=== PATIENT | female | born 1955 | race Caucasian/White ===

== ENCOUNTER 2021-02-16 02:35 | Emergency (ER) | payer OTHER, SELFPAY ==
[2021-02-16 02:36] VITALS: BP 132/70; PULSE 84; RESP 16; TEMP 36.7; O2SAT 95; BMI 29.2
--- NOTE | 2021-02-16 03:24 | HMH.EDEXTP ---
ED Disposition Clinical Impression: Rheumatoid arthritis flare Joint pain Qualifiers: Joint pain location: ankle Laterality: left Qualified Code(s): M25.572 - Pain in left ankle and joints of left foot Disposition: Home, Self-Care Condition on Discharge: Good Instructions: DI for Joint Pain Additional Instructions: use meds and call pcp for follow up Prescriptions: predniSONE [Prednisone 20mg Tab] 20 mg PO BID #10 tab Transmission Status: Pending to [facility] Referrals: Walker Capps [Primary Care Provider] - - Critical Care Critical Care Time: No Attestation: On 02/16/21, the high probability of a clinically significant, sudden or life threatening deterioration of the following system(s) required my full and direct attention, intervention and personal management. The time I documented below is in addition to time spent performing reported procedures but includes the following listed in this critical care notation. Medical Decision Making - Medical Records Medical records reviewed: Yes: I reviewed the patient's medical records. - Luis Miguel Inquiry Pt receiving controlled substance: No Vital Signs: 02/16/21 02:36 Temperature 98.1 F Temperature Source Oral Pulse Rate [Right] 84 Respiratory Rate 16 Blood Pressure [Right Arm] 132/70 Blood Pressure Mean [Right Arm] 90 02 Sat by Pulse Oximetry 95 Orders (Tests/Meds): ED MEDICATIONS Discontinued Medications Generic Name Dose Route Start Last Admin Trade Name Quinn PRN Reason Stop Dose Admin Ketorolac Tromethamine 60 mg 02/16/21 03:12 02/16/21 03:16 Ketorolac 60mg/2ml Vial IM 02/16/21 03:13 60 mg ONCE ONE Administration Methylprednisolone Sodium Succinate 125 mg 02/16/21 03:12 02/16/21 03:16 Methylprednisolone Sod Succ 125mg Vial IV 02/16/21 03:13 125 mg ONCE ONE Administration Medical Decision Narrative: has acute atraumatic jt pain consistent with hx of rheum art Extremity Problem HPI - General Chief complaint: Extremity Injury, Lower Stated complaint: Pain in left ankle Time Seen by Provider: 02/16/21 03:26 Mode of Arrival: Wheelchair Source of Information: Patient, Medical Record Limitations: No Limitations Description of Symptoms (Recalled from ER Triage Doc. by RN): pt c/o rt anle pain . pt denies no accident pt has hx of RA - History of Present Illness HPI Narrative: acute exacerbation of jt dis with lt ankle - saw rheum this am - no fever or trauma and no rash - has hx of jay hensley MD Complaint: joint paint Onset (ago): day(s) Consistency: constant Location: lower extremity Quality: aching Exacerbating factors: range of motion, weight bearing Associated symptoms: denies other symptoms - Related Data Previous Rx's Medication Instructions Recorded predniSONE [Prednisone 20mg 20 mg PO BID #10 tab 02/16/21 Tab] Allergies Allergy/AdvReac Type Severity Reaction Status Date / Time No Known Allergies Allergy Unverified 04/16/17 14:40 [facility] History - Hepatitis A Screen Drug use history?: No High risk sexual behaviors?: No History of sexually transmitted infection?: No Currently employed?: No Childcare worker?: Yes Do you have indoor plumbing?: Yes Do you have electricity?: Yes Attestation statement:: This patient has been screened for Hepatitis A risk factors. I have reviewed the patient's past medical history: Yes - Social History Smoking Status: Current every day smoker # Packs/Day (cigarettes): 1 Alcohol Intake: never Occupational Status: employed ROS Obtained: Yes All systems reviewed & no additional complaints - Constitutional Constitutional: Denies fever(s) - Eyes Eyes: Denies change in vision - ENT Ears, Nose, Mouth, and Throat: Denies sore throat - Cardiovascular Cardiovascular: Denies chest pain - Respiratory Respiratory: Denies shortness of breath - Gastrointestinal Gastrointestingal: Denies: abdominal pain - Candace
[2021-02-16 03:28] VITALS: BP 132/70; PULSE 84; RESP 16; TEMP 36.7; O2SAT 95
== END 2021-02-16 03:41 | disposition home or self-care (01) ==
PROVIDERS: Emergency Provider Emergency Medicine; PCP Pediatrics
DX: M25.572 Pain in left ankle and joints of left foot (principal); M05.672 Rheumatoid arthritis of left ankle and foot with involvement of other organs and systems; F17.210 Nicotine dependence, cigarettes, uncomplicated
CPT/HCPCS: 96372; 99281

== ENCOUNTER 2022-04-30 06:39 | Emergency (ER) | payer OTHER, MEDICARE, SELFPAY ==
[2022-04-30] VITALS (8 sets, daily range): BP systolic 118–149; BP diastolic 56–89; PULSE 58–78; RESP 16–20; TEMP 36.6–36.9; O2SAT 93–96; BMI 31.1
--- NOTE | 2022-04-30 06:50 | ECG_ITS ---
APPROVED REPORT Exam: Resting ECG HR:58 bpm ECG Measurements Heart Rate 58 AXES NV 150 P 71 QRSd 82 QRS 69 QT 422 T 66 QTc 419 Conclusion SINUS BRADYCARDIA NONSPECIFIC T-WAVE ABNORMALITY BORDERLINE ECG UNCONFIRMED REPORT Electronically signed by : Byron Barragan MD 04/30/2022 20:02:44
--- NOTE | 2022-04-30 06:52 | XR_ITS ---
PROCEDURE INFORMATION: Exam: XR Chest Exam date and time: 04/30/2022 6:53 AM Age: 66 years old Clinical indication: Shortness of breath; Patient HX: SOB, pain on inspiration; Additional info: SOA TECHNIQUE: Imaging protocol: Radiologic exam of the chest. Views: 2 views. COMPARISON: No relevant prior studies available. FINDINGS: Lungs: Linear opacity in the right mid lung with subtle area of increased density right infrahilar region. Atelectasis versus infiltrate suspected. Follow-up to ensure resolution. Lungs are otherwise well aerated. Pleural spaces: Unremarkable. No pleural effusion. No pneumothorax. Heart/Mediastinum: Unremarkable. No cardiomegaly. Bones/joints: Unremarkable. IMPRESSION: Linear opacity in the right mid lung with subtle area of increased density right infrahilar region. Atelectasis versus infiltrate suspected. Follow-up to ensure resolution. Lungs are otherwise well aerated.
[2022-04-30 07:00] LABS: Coronavirus 19, PCR Not Detected (NotDetected); Influenza A, PCR Not Detected (NotDetected); Influenza B, PCR Not Detected (NotDetected)
[2022-04-30 07:08] LABS: Basophils # 0.1 K/mm3 (0-0.2); Basophils % 1.1 % (0.1-2.0); Eosinophils # 0.1 K/mm3 (0.0-0.4); Eosinophils % 1.4 % (0.1-12.0); Hematocrit 44.9 % (37.0-47.0); Hemoglobin 14.4 g/dL (12.2-16.2); Lymphocytes # 2.8 K/mm3 (0.7-4.5); Lymphocytes % 28.6 % (10-50); Mean Corpuscular HGB Conc 32.2 g/dL (31.8-35.4); Mean Corpuscular Hemoglobin 30.1 pg (27.0-31.2); Mean Corpuscular Volume 93.6 fl (81-99); Mean Platelet Volume 8.1 fl (7.4-10.4); Monocytes # 0.7 K/mm3 (0.1-1.0); Monocytes % 7.7 % (1.7-9.3); Neutrophils # 5.9 K/mm3 (1.8-7.8); Neutrophils % 61.1 % (37.0-80.0); Platelet Count 318 K/mm3 (142-424); Red Blood Count 4.79 M/mm3 (4.20-5.40); White Blood Count 9.6 K/mm3 (4.8-10.8)
[2022-04-30 07:23] LABS: Alanine Aminotransferase 21 U/L (12-78); Albumin Level 4.1 g/dl (3.5-5.0); Albumin/Globulin Ratio 1.2 (1.1-1.8); Alkaline Phosphatase 141 U/L (38-126); Anion Gap 7.8 mEq/L (5-15); Aspartate Amino Transferase 36 U/L (14-36); Bilirubin,Total 0.4 mg/dl (0.2-1.3); Blood Urea Nitrogen 24 mg/dl (7-17); Calcium 8.6 mg/dl (8.4-10.2); Carbon Dioxide 26 mmol/L (22.0-30.0); Chloride 104 mmol/L (98-107); Creatinine Clearance Estimated 53 mL/min (50-200); Estimated Glomerular Filt Rate 41 ml/min (>60); GFR (African American) 50 ML/MIN (>60); Globulin 3.5 g/dL (1.3-3.2); Glucose 117 mg/dl (74-100); Lactic Acid 0.9 mmol/L (0.7-2.1); Potassium 3.8 mmoL/L (3.5-5.1); Sodium 134 mmol/L (136-145); Total Protein,Serum 7.6 g/dl (6.3-8.2)
[2022-04-30 07:28] LABS: C-Reactive Protein 8.1 mg/L (0-4)
[2022-04-30 07:36] LABS: Erythrocyte Sedimentation Rate 15 mm/hr (0-30)
[2022-04-30 07:39] LABS: Procalcitonin 0.083 ng/mL (0.0-2.0)
[2022-04-30 07:51] LABS: Troponin I < 0.01 ng/ml (0.00-0.034)
--- NOTE | 2022-04-30 08:01 | HMH.EDSOB ---
Discharge Plan Disposition Patient Disposition: Home, Self-Care Condition: Good Prescriptions Prescriptions: No Action prednisone 20 MG tablet 20 mg PO BID Qty: 10 0RF Referrals Follow up/Referrals: Walker Capps [Primary Care Provider] - See instructions Activity Restrictions/Add. Instructions Additional Instructions/Restrictions: Patient is informed to call her oncologist team as soon as she leaves the ED to set up an appointment. Results from CT scan discussed including concern for diffuse metastasis to the liver, rib cage, lungs and kidneys. You may require further imaging including a PET scan, please discuss with your oncology team regarding further management. Please take tyenol and ibuprofen for pain control and return to emergency department for any concerning symptoms such as difficulty breathing, worsening chest pain or any other concerns. Clinical Impressions Clinical Impression: Pleurisy, Metastatic cancer, Lung cancer, Emphysema lung Instructions Patient Instructions: DI for Emphysema, Pleurisy, DI for Lung Cancer Print Language Print Language: Greek Discharge ED Provider: Phong Reveles Resp/SOB HPI <Phong Reveles MD - Last Filed: 04/30/22 08:12> General Chief Complaint: Shortness of Breath/Dyspnea Stated Complaint: Difficulty breathing,lung pain,cough Time Seen by Provider: 04/30/22 07:30 Mode of Arrival: Ambulatory Source of Information: Patient and Medical Record Limitations: No Limitations Description of Symptoms (Recalled from ER Triage Doc. by RN): pt c/o increasing SOA and pain in rt lung with inhalation that started yesterday. pt completed treatment for lung cancer in july History of Present Illness pt with rt sided chest pain ishan with insp on rt - hx of lung cancer Complaint: shortness of breath and pain with inspiration Onset (ago): day(s) Severity: moderate Consistency/Duration: intermittent Associated symptoms: denies other symptoms Treatment prior to arrival: none Related Data Home oxygen amount: none Previous Rx's Medication Instructions Recorded prednisone 20 mg tablet 20 mg PO BID #10 tabs 02/16/21 Allergies Allergy/AdvReac Type Severity Reaction Status Date / Time No Known Allergies Allergy Unverified 04/16/17 14:40 [facility] PE Score Clinical signs/symptoms of DVT: No PE is #1 diagnosis or equally likely: Yes Heart rate is > 100: Yes Immobile at least 3 days, or surgery in past 4 wks: No Previously, obj. diagnosed PE or DVT: No Hemoptysis: No Malignancy w/Rx within 6mo, or palliative: Yes PE Score: 5 Risk of Pulmonary Embolism by score: >3 pts=Hi Risk (78%) <Mary Ibrahim MD - Last Filed: 04/30/22 10:26> Well's Criteria PE Score PE Score: 5 PFSH <Phong Reveles MD - Last Filed: 04/30/22 08:12> PFSH Disclaimer: The information contained in this section may have been updated after the patient was seen, as this information can be updated by other users. Social History Smoking Status: Current every day smoker alcohol intake: never current occupational status: employed Travel in the last 8 weeks: None <Phong Reveles MD - Last Filed: 04/30/22 08:12> ROS Obtained: Yes All systems reviewed & no additional complaints except as documented Physical Exam <Phong Reveles MD - Last Filed: 04/30/22 08:12> General General appearance: alert Head Head exam: normocephalic Eye Eye exam: Present PERRL and EOMI ENT ENT exam: Present mucous membranes moist Neck Neck exam: Present trachea midline Chest Chest inspection: Present normal inspection Respiratory Respiratory exam: Present other (rhonchi on rt ) Cardiovascular Cardiovascular exam: Present regular rate and systolic murmur Abdominal Exam Abdominal exam: Present soft Extremities Exam Extremities exam: Present full ROM; Absent calf tenderness Neurological Exam Neurological exam: Present alert, oriented X3 and CN II-XII intact Psychiatric Psychiatric exam: Noe
--- NOTE | 2022-04-30 08:10 | CT_ITS ---
PROCEDURE INFORMATION: Exam: CTA Chest With Contrast Exam date and time: 04/30/2022 9:27 AM Age: 66 years old Clinical indication: Shortness of breath; Other: Right sided shoulder blade; Patient HX: SOA & pain in right shoulder blade; Additional info: Sob- HX of cancer TECHNIQUE: Imaging protocol: Computed tomographic angiography of the chest with contrast. 3D rendering (Not supervised by radiologist): MIP and/or 3D reconstructed images were created by the technologist. Radiation optimization: All CT scans at this facility use at least one of these dose optimization techniques: automated exposure control; mA and/or kV adjustment per patient size (includes targeted exams where dose is matched to clinical indication); or iterative reconstruction. Contrast material: ISOVUE; Contrast volume: 70 ml; Contrast route: INTRAVENOUS (IV); COMPARISON: CR XR CHEST 2V 04/30/2022 6:53 AM FINDINGS: Pulmonary arteries: Normal. No pulmonary emboli. Aorta: Calcification of the aorta. Celiac trunk and mesenteric arteries: Flow within the visualized portions of the celiac artery and superior mesenteric artery. Lungs: Severe emphysema with destruction of much of the lung parenchyma, particularly within the upper lobes. Airspace consolidation within the posterior segment of the right upper lobe and or superior segment of the right lower lobe adjacent to the major fissure. Possibly atelectasis. Follow-up. Pleural spaces: Unremarkable. No pneumothorax. No pleural effusion. Heart: No pericardial effusion Mediastinal space: thoracic inlet is unremarkable. Lymph nodes: Numerous calcified lymph nodes are present within the mediastinum and hilum. These are likely the radiographic manifestation of granulomatous disease. Diaphragm: Moderate hiatal hernia. Liver: Numerous lesions within the liver consistent with metastases. Largest lateral segment left lobe of 2.6 cm. Gallbladder and bile ducts: Surgical clips are present in the region of the gallbladder fossa. Adrenal glands: Adrenal nodule on the right of approximately 17 mm. Concerning for metastases given the lesions within the liver. Bones/joints: Degenerative changes are present within the spine. Lytic lesion within the 5th rib posteriorly on the left. Soft tissues: Soft tissues of the mediastinum appear unremarkable. Other findings: No dissection. No visualized embolism as characterized to the most proximal segmental level. Consider alternative form of imaging if indicated. IMPRESSION: 1. Numerous lesions within the liver consistent with metastases. Largest lateral segment left lobe of 2.6 cm. 2. Adrenal nodule on the right of approximately 17 mm. Concerning for metastases given the lesions within the liver. 3. Moderate hiatal hernia. 4. No dissection. No visualized embolism as characterized to the most proximal segmental level. Consider alternative form of imaging if indicated. 5. Severe emphysema with destruction of much of the lung parenchyma, particularly within the upper lobes. 6. Airspace consolidation within the posterior segment of the right upper lobe and or superior segment of the right lower lobe adjacent to the major fissure. Possibly atelectasis. Follow-up. 7. Lytic lesion within the 5th rib posteriorly on the left.
--- NOTE | 2022-04-30 08:10 | PC.NURSE ---
Pt requesting something for pain at this time. Dr Reveles notified. Pt provided with warm blanket.
--- NOTE | 2022-04-30 09:23 | PC.NURSE ---
PT TRANSPORTED TO RADIOLOGY VIA WHEELCHAIR.
--- NOTE | 2022-04-30 09:32 | PC.NURSE ---
PT RETURNED FROM RADIOLOGY.
--- NOTE | 2022-04-30 09:50 | PC.NURSE ---
July assisted pt to the restroom. Pt tolerated well.
[2022-04-30 09:56] LABS: Troponin I < 0.01 ng/ml (0.00-0.034)
--- NOTE | 2022-04-30 09:59 | PC.NURSE ---
provided pt with warm blanket. hooked back up to monitor and blood pressure cycling.
--- NOTE | 2022-04-30 10:09 | PC.NURSE ---
er at bedside
== END 2022-04-30 10:50 | disposition home or self-care (01) ==
PROVIDERS: Emergency Provider Emergency Medicine; PCP Pediatrics
DX: R06.00 Dyspnea, unspecified (principal); R09.1 Pleurisy; J43.9 Emphysema, unspecified; R07.89 Other chest pain; F17.210 Nicotine dependence, cigarettes, uncomplicated; Z20.822 Contact with and (suspected) exposure to COVID-19; C34.91 Malignant neoplasm of unspecified part of right bronchus or lung; C79.51 Secondary malignant neoplasm of bone; C78.7 Secondary malignant neoplasm of liver and intrahepatic bile duct; C79.00 Secondary malignant neoplasm of unspecified kidney and renal pelvis
CPT/HCPCS: 71046; 71275; 80053; 83605; 84145; 84484; 85025; 85651; 86140; 87040; 93005; 96361; 96374; 96375; 99285; C9803; Q9967; U0003; U0005

== ENCOUNTER 2022-10-10 18:31 | Emergency (ER) | payer OTHER, MEDICARE, SELFPAY ==
[2022-10-10 18:32] VITALS: BP 129/80; PULSE 92; RESP 24; TEMP 36.6; O2SAT 99; BMI 35.2
[2022-10-10 18:43] VITALS: BMI 35.2
--- NOTE | 2022-10-10 19:17 | XR_ITS ---
PROCEDURE INFORMATION: Exam: XR Chest Exam date and time: 10/10/2022 7:24 PM Age: 67 years old Clinical indication: Shortness of breath; Additional info: SOB TECHNIQUE: Imaging protocol: Radiologic exam of the chest. Views: 1 view. COMPARISON: CR XR CHEST 2V 04/30/2022 6:53 AM FINDINGS: Tubes, catheters and devices: Right jugular port in place with tip in the distal SVC. Lungs: Moderate changes of COPD/emphysema. Pulmonary vasculature grossly normal. Bandlike alveolar density in the right mid lung, unchanged from 04/30/2022, favor chronic atelectasis and scarring. No definite superimposed acute infiltrate. Pleural spaces: No pleural effusion. No pneumothorax. Heart/Mediastinum: Heart size normal. No tracheal/mediastinal shift. Bones/joints: No acute osseous abnormalities are identified. IMPRESSION: 1. No definite acute process. 2. Moderate changes of COPD/emphysema. 3. Chronic bandlike alveolar density in the right mid lung consistent with chronic scarring and atelectasis, unchanged. No suspected superimposed acute infiltrates or edema pattern. 4. Right jugular port with catheter tip in the distal SVC. No pneumothorax.
--- NOTE | 2022-10-10 19:20 | HMH.EDGENADL ---
Discharge Plan Disposition Patient Disposition: Home, Self-Care Condition: Good Prescriptions Prescriptions: New prednisone 50 mg tablet 50 mg PO DAILY 7 Days Qty: 7 0RF No Action prednisone 20 MG tablet 20 mg PO BID Qty: 10 0RF Referrals Follow up/Referrals: Walker Capps [Primary Care Provider] - See instructions Clinical Impressions Clinical Impression: Anaphylaxis Instructions Patient Instructions: DI for Insect Bites and Stings Discharge ED Provider: Mateusz Urena General Adult HPI General Chief complaint: Allergic Reaction Stated complaint: SHORTNESS OF AIR Time Seen by Provider: 10/10/22 18:35 Mode of Arrival: Ambulatory Source of Information: Patient Limitations: No Limitations Description of Symptoms (Recalled from ER Triage Doc. by RN): pt to the ED from home after a bee sting to her right foot. on assessment pt face is puffy, diaphoretic and complaining of SOB. pt wear 2L NC oxygen at home at all times. pt reports s history of allergic reaction to bee stings but doesnt have an EPI oen at home History of Present Illness HPI narrative: This is a 67-year-old female with history of metastatic cancer who stated that was stung by a bee on her right foot ever since then she has been complaining of shortness of breath patient is normally on 2 L O2 at home continuously. Patient is lethargic but arousable. Most of the history was obtained from the . Related Data Previous Rx's Medication Instructions Recorded prednisone 20 mg tablet 20 mg PO BID #10 tabs 02/16/21 prednisone 50 mg tablet 50 mg PO DAILY 7 days #7 tabs 10/10/22 Allergies Allergy/AdvReac Type Severity Reaction Status Date / Time No Known Allergies Allergy Unverified 04/16/17 14:40 [facility] Disclaimer: The information contained in this section may have been updated after the patient was seen, as this information can be updated by other users. Social History Smoking Status: Current every day smoker alcohol intake: never current occupational status: employed Travel in the last 8 weeks: None ROS Obtained: Yes All systems reviewed & no additional complaints except as documented Skin see HPI HEENT no runny nose sore throat Pulmonary see HPI Cardiovascular no chest pain pressure heaviness GI no abdominal pain nausea or vomiting no dysuria pyuria hematuria Musculoskeletal no neck or back pain Endocrine no polydipsia polyuria or polyphasia Psych no SI or HI The rest of the systems were reviewed and found to be negative Physical Exam Narrative Physical exam: Skin: Warm and dry HEENT: Normocephalic atraumatic extract muscles are intact pupils are equal and reactive to light Neck: Supple nontender Lungs: Clear to auscultation Heart: Regular rate and rhythm Abdomen: NABS soft nontender Extremities: There is evidence of a bee sting on the dorsum of the right foot with minimal edema Neurologic: No unilateral weakness or numbness Lymphatic: No cervical or inguinal adenopathy Musculoskeletal: No tenderness of the dorsal or lumbar spine Psych: No SI or HI General General appearance: alert Respiratory Respiratory exam: Present normal lung sounds bilaterally Cardiovascular Cardiovascular exam: Present regular rate Neurological Exam Neurological exam: Present alert Medical Decision Making Luis Miguel Inquiry Pt receiving controlled substance: No Vital Signs: 10/10/22 18:32 Temperature 97.9 F Temperature Source Oral Pulse Rate [Left Radial] 92 H Respiratory Rate 24 Blood Pressure [Right Arm] 129/80 Blood Pressure Mean [Right Arm] 96 Blood Pressure Source [Right Arm] Automatic Cuff Blood Pressure Position [Right Arm] Sitting 02 Sat by Pulse Oximetry 99 Oxygen Delivery Method Nasal Cannula Oxygen Flow Rate (LPM) 3 Lab Data Lab Results 10/10/22 18:36: Sodium 139, Potassium 3.9, Chloride 107 10/10/22 18:36: WBC 4.8, RBC 3.66 L, Hgb 11.1 L, Hct 36.3 L, MCV 99.2 H, MCH 30.4, MCHC 30.6 L, R
[2022-10-10 19:27] LABS: Basophils % 0.1 % (0.1-2.0); Eosinophils % 0.2 % (0.1-12.0); Hematocrit 36.3 % (37.0-47.0); Hemoglobin 11.1 g/dL (12.2-16.2); Lymphocytes % 62.7 % (10-50); Mean Corpuscular HGB Conc 30.6 g/dL (31.8-35.4); Mean Corpuscular Hemoglobin 30.4 pg (27.0-31.2); Mean Corpuscular Volume 99.2 fl (81-99); Mean Platelet Volume 8.4 fl (7.4-10.4); Monocytes # 0.1 K/mm3 (0.1-1.0); Monocytes % 1.1 % (1.7-9.3); Neutrophils # 1.7 K/mm3 (1.8-7.8); Neutrophils % 35.9 % (37.0-80.0); Platelet Count 329 K/mm3 (142-424); Red Blood Count 3.66 M/mm3 (4.20-5.40); Red Cell Distribution Width 21.9 % (11.5-17.5); White Blood Count 4.8 K/mm3 (4.8-10.8)
[2022-10-10 19:28] LABS: MANUAL DIFFERENTIAL MANUAL DIFFERENTIAL (MANUAL DIFF)
[2022-10-10 19:29] LABS: Chloride 107 mmol/L (98-107); Potassium 3.9 mmoL/L (3.5-5.1); Sodium 139 mmol/L (136-145)
[2022-10-10 19:32] LABS: Alanine Aminotransferase 51 U/L (12-78); Albumin Level 3.5 g/dl (3.5-5.0); Albumin/Globulin Ratio 1.3 (1.1-1.8); Alkaline Phosphatase 94 U/L (38-126); Anion Gap 13.9 mEq/L (5-15); Aspartate Amino Transferase 70 U/L (14-36); Blood Urea Nitrogen 15 mg/dl (7-17); Calcium 8.3 mg/dl (8.4-10.2); Carbon Dioxide 22 mmol/L (22.0-30.0); Creatinine Clearance Estimated 90 mL/min (50-200); Estimated Glomerular Filt Rate 56 ml/min (>60); GFR (African American) 67 ML/MIN (>60); Globulin 2.8 g/dL (1.3-3.2); Glucose 176 mg/dl (74-100); Total Protein,Serum 6.3 g/dl (6.3-8.2)
[2022-10-10 19:40] LABS: ABG Base Excess -6.4 mmol/L (-2.4-2.3); ABG HCO3 20.6 mmhg (22.0-26.0); ABG Oxygen Saturation 97 % (90-100); ABG PCO2 46.1 mmhg (35.0-45.0); ABG PH 7.27 mmol/L (7.35-7.45); ABG PO2 107.3 mmhg (80-100)
[2022-10-10 19:42] LABS: Allen's Test Acceptable; Oxygen 4LPM N/C %; Source Left Radial
[2022-10-10 20:15] VITALS: BP 122/58; PULSE 68; RESP 16; TEMP 37.1; O2SAT 94
[2022-10-10 20:31] LABS: Eosinophils % 1 % (0-3); Hypochromasia 1+; Lymphocytes % 62 % (10-50); Macrocytosis 1+; Monocytes % 2 % (2-9); Neutrophils % 35 % (42-76); Platelet Estimate Normal; Total Cells Counted 100
== END 2022-10-10 20:30 | disposition home or self-care (01) ==
PROVIDERS: Emergency Provider Emergency Medicine; PCP Pediatrics
DX: T78.2XXA Anaphylactic shock, unspecified, initial encounter (principal); T63.441A Toxic effect of venom of bees, accidental (unintentional), initial encounter; R53.83 Other fatigue; F17.200 Nicotine dependence, unspecified, uncomplicated
CPT/HCPCS: 71045; 80053; 82803; 85007; 85025; 96374; 99284; 99285

== ENCOUNTER 2023-02-09 03:09 | Inpatient (IN) | payer OTHER, MEDICARE, SELFPAY ==
[2023-02-09] VITALS (28 sets, daily range): BP systolic 89–129; BP diastolic 50–80; PULSE 60–80; RESP 13–22; TEMP 36.5–37.5; O2SAT 88–100; BMI 26.1; BMI 25.0
--- NOTE | 2023-02-09 03:07 | ECG_ITS ---
APPROVED REPORT Exam: Resting ECG HR:78 bpm ECG Measurements Heart Rate 78 AXES WI 152 P 74 QRSd 82 QRS 81 QT 371 T 24 QTc 404 Conclusion SINUS RHYTHM LOW QRS VOLTAGE IN PRECORDIAL LEADS [QRS DEFLECTION < 1.0 mV IN CHEST LEADS] ST DEVIATION AND MODERATE T-WAVE ABNORMALITY, CONSIDER ANTERIOR ISCHEMIA [-0.1+ mV T-WAVE IN V3/V4] ABNORMAL ECG UNCONFIRMED REPORT Electronically signed by : Byron Barragan MD 02/11/2023 17:23:42
--- NOTE | 2023-02-09 03:09 | XR_ITS ---
PROCEDURE INFORMATION: Exam: XR Chest Exam date and time: 02/09/2023 3:53 AM Age: 67 years old Clinical indication: Shortness of breath and other: Resp failure; Additional info: SOA, resp failure TECHNIQUE: Imaging protocol: Radiologic exam of the chest. Views: 1 view. COMPARISON: CR XR CHEST PORTABLE 10/10/2022 7:24 PM FINDINGS: Tubes, catheters and devices: Central venous catheter unchanged. Increasing right-sided effusion. Lungs: Increasing right lung base airspace disease. Pleural spaces: Unremarkable. No pleural effusion. No pneumothorax. Heart/Mediastinum: Unremarkable. No cardiomegaly. Bones/joints: Unremarkable. IMPRESSION: Increasing right-sided effusion. Increasing right lung base airspace disease.
[2023-02-09 03:14] LABS: POC Glucose,Bedside 124 (70-110)
[2023-02-09 03:28] LABS: Basophils % 0.6 % (0.1-2.0); Eosinophils % 0.7 % (0.1-12.0); Hematocrit 29.4 % (37.0-47.0); Hemoglobin 9.9 g/dL (12.2-16.2); Lymphocytes # 0.5 K/mm3 (0.7-4.5); Mean Corpuscular HGB Conc 33.5 g/dL (31.8-35.4); Mean Corpuscular Hemoglobin 32.5 pg (27.0-31.2); Mean Corpuscular Volume 96.9 fl (81-99); Mean Platelet Volume 10.4 fl (7.4-10.4); Monocytes # 0.6 K/mm3 (0.1-1.0); Monocytes % 11.5 % (1.7-9.3); Neutrophils # 3.9 K/mm3 (1.8-7.8); Neutrophils % 78.1 % (37.0-80.0); Platelet Count 132 K/mm3 (142-424); Red Blood Count 3.03 M/mm3 (4.20-5.40); Red Cell Distribution Width 22.1 % (11.5-17.5)
[2023-02-09 03:38] LABS: Lactic Acid 1.3 mmol/L (0.7-2.1)
[2023-02-09 03:39] LABS: Alanine Aminotransferase 26 U/L (12-78); Albumin Level 2.7 g/dl (3.5-5.0); Alkaline Phosphatase 140 U/L (38-126); Anion Gap 8.1 mEq/L (5-15); Aspartate Amino Transferase 49 U/L (14-36); Bilirubin,Total 1.2 mg/dl (0.2-1.3); Blood Urea Nitrogen 24 mg/dl (7-17); Calcium 7.8 mg/dl (8.4-10.2); Carbon Dioxide 27 mmol/L (22.0-30.0); Chloride 101 mmol/L (98-107); Creatinine Clearance Estimated 49 mL/min (50-200); Estimated Glomerular Filt Rate 41 ml/min (>60); GFR (African American) 50 ML/MIN (>60); Globulin 2.8 g/dL (1.3-3.2); Glucose 113 mg/dl (74-100); Potassium 4.1 mmoL/L (3.5-5.1); Sodium 132 mmol/L (136-145); Total Protein,Serum 5.5 g/dl (6.3-8.2)
--- NOTE | 2023-02-09 03:40 | CT_ITS ---
PROCEDURE INFORMATION: Exam: CT Head Without Contrast Exam date and time: 02/09/2023 4:46 AM Age: 67 years old Clinical indication: Altered mental status/memory loss; Confusion or disorientation; Additional info: Resp failure, AMS TECHNIQUE: Imaging protocol: Computed tomography of the head without contrast. Radiation optimization: All CT scans at this facility use at least one of these dose optimization techniques: automated exposure control; mA and/or kV adjustment per patient size (includes targeted exams where dose is matched to clinical indication); or iterative reconstruction. REPORTING DATA: Count of CT and Cardiac NM exams in prior 12 months: This patient has received [address] and 0 known cardiac nuclear medicine studies in the 12 months prior to the current study. COMPARISON: No relevant prior studies available. FINDINGS: Brain: No mass effect or midline shift. No intracranial hemorrhage. No intracranial edema. No evidence of acute territorial ischemia. There is moderate diffuse heterogeneity of the white matter attenuation, consistent with chronic white matter microvascular ischemic changes. Cerebral ventricles: No ventriculomegaly. Paranasal sinuses: No acute findings. No fluid levels. Mastoid air cells: No significant mastoid effusion. Bones/joints: No acute fracture. Soft tissues: No acute findings. IMPRESSION: 1. No acute intracranial findings. 2. Other chronic changes as described.
--- NOTE | 2023-02-09 03:40 | CT_ITS ---
PROCEDURE INFORMATION: Exam: CTA Chest With Contrast Exam date and time: 02/09/2023 4:50 AM Age: 67 years old Clinical indication: Condition or disease; Other: Cancer; Other: Resp failure TECHNIQUE: Imaging protocol: Computed tomographic angiography of the chest with contrast. Exam focused on the arteries. 3D rendering (Not supervised by radiologist): MIP and/or 3D reconstructed images were created by the technologist. Radiation optimization: All CT scans at this facility use at least one of these dose optimization techniques: automated exposure control; mA and/or kV adjustment per patient size (includes targeted exams where dose is matched to clinical indication); or iterative reconstruction. Contrast material: ISOVUE 370; Contrast volume: 60 ml; Contrast route: INTRAVENOUS (IV); REPORTING DATA: Count of CT and Cardiac NM exams in prior 12 months: This patient has received [address] and 0 known cardiac nuclear medicine studies in the 12 months prior to the current study. COMPARISON: CT ANGIO CHEST PE PROTOCOL 04/30/2022 9:27 AM FINDINGS: Pulmonary arteries: No evidence of pulmonary embolism. Aorta: Unremarkable. No aortic aneurysm. No aortic dissection. Lungs: Bibasilar patchy atelectasis and airspace disease noted most prominent on the right. Extensive centrilobular emphysema. Pleural spaces: Moderate right-sided pleural effusion, small left-sided pleural effusion. Heart: Mild cardiomegaly. Coronary arteries: Coronary atherosclerosis. Lymph nodes: Unremarkable. No enlarged lymph nodes. Bones/joints: Unremarkable. No acute fracture. Soft tissues: Unremarkable. IMPRESSION: 1. No evidence of pulmonary embolism. 2. Right lower lobe consolidation worrisome for infiltrate. 3. Moderate right and small left-sided pleural effusions. 4. Advanced centrilobular emphysema with areas of ground-glass opacity which may represent edema. COMMENTS: In the absence of a history or active diagnosis of lung cancer, it is recommended that this patient with emphysema be evaluated for enrollment in a low dose CT lung cancer screening program.
--- NOTE | 2023-02-09 03:40 | CT_ITS ---
PROCEDURE INFORMATION: Exam: CT Abdomen With Contrast Exam date and time: 02/09/2023 4:50 AM Age: 67 years old Clinical indication: Other: H/o cancer; Additional info: AMS, resp failure, h/o cancer TECHNIQUE: Imaging protocol: Computed tomography of the abdomen with contrast. Radiation optimization: All CT scans at this facility use at least one of these dose optimization techniques: automated exposure control; mA and/or kV adjustment per patient size (includes targeted exams where dose is matched to clinical indication); or iterative reconstruction. Contrast material: ISOVUE 370; Contrast volume: 60 ml; Contrast route: IV; REPORTING DATA: Count of CT and Cardiac NM exams in prior 12 months: This patient has received [address] and 0 known cardiac nuclear medicine studies in the 12 months prior to the current study. COMPARISON: CT ANGIO CHEST PE PROTOCOL 04/30/2022 9:27 AM FINDINGS: Pleural spaces: small to moderate right and small left-sided pleural effusion. Liver: Indeterminate but stable hypodensities are seen in both the right and left lobe of the liver the largest seen in the lateral segment on the left measuring 2.4 cm in diameter. Gallbladder and bile ducts: Prior cholecystectomy with residual prominence of the common bile duct. Pancreas: Normal. No ductal dilation. Spleen: Normal. No splenomegaly. Adrenal glands: Normal. No mass. Kidneys and ureters: Normal. No hydronephrosis. Stomach and bowel: There is extensive concentric thickening involving the right colon extending to the transverse colon. No perforation is noted. Thickening of the sigmoid colon is also noted as is the descending colon. Intraperitoneal space: Small amount of free fluid is present. Vasculature: Unremarkable. No abdominal aortic aneurysm. Lymph nodes: Unremarkable. No enlarged lymph nodes. Urinary bladder: Yarbrough catheter decompresses the bladder. Bones/joints: Unremarkable. No acute fracture. No dislocation. Soft tissues: Unremarkable. IMPRESSION: 1. Diffuse colonic thickening most prominent on the right, underlying colitis suspected likely infectious in nature. 2. Multiple indeterminate liver hypodensities are present not significantly changed in size from prior study but still indeterminate in nature. Consider MRI for further characterization as clinically indicated. 3. Small amount of free fluid is seen in the abdomen and pelvis, no abscess or pneumoperitoneum noted.
[2023-02-09 03:51] LABS: Troponin I 0.08 ng/ml (0.00-0.034)
[2023-02-09 03:56] LABS: T4 (Thyroxine) 7.3 ug/dl (5.53-11.0)
[2023-02-09 04:05] LABS: VBG Base Excess -4.3 mmol/L (-2.4-2.3); VBG HCO3 23.1 mmol/L (23-30); VBG Oxygen Saturation 97.3 % (50-70); VBG PH 7.24 mmol/L (7.31-7.41); VBG PO2 111.7 mmol/L (28-40); VBG Total CO2 24.8 mmol/L (23-27)
[2023-02-09 04:10] LABS: Thyroid Stimulating Hormone 2.89 uIU/mL (0.465-4.68)
[2023-02-09 04:10] LABS: VBG PCO2 55.3 mmol/L (35-51)
[2023-02-09 04:13] LABS: Microscopic, Urine URINE MICROSCOPIC (MICROSCOPIC)
[2023-02-09 04:18] LABS: Appearance,Urine CLEAR (Clear); Blood, Urine Negative (Negative); Color,Urine DARK YELLOW (Yellow); Glucose,Urine (UA) Negative (Negative); Ketones,Urine Negative (Negative); Leukocyte Esterase,Urine Negative (Negative); Nitrate,Urine Negative (Negative); Protein,Urine 1+ (Negative); Specific Gravity, Urine 1.025 (1.005-1.030)
[2023-02-09 04:26] LABS: Bilirubin,Urine 1+ (Negative)
--- NOTE | 2023-02-09 04:36 | HMH.EDGENADL ---
Discharge Plan Disposition Patient Disposition: Admitted Clinical Impressions Clinical Impression: AMS (altered mental status), Acute and chronic respiratory failure, Acute respiratory acidosis, Acute exacerbation of chronic obstructive pulmonary disease, LEAH (acute kidney injury) Pneumonia Qualifiers: Pneumonia type: due to unspecified organism Laterality: bilateral Lung location: unspecified part of lung Qualified Code(s): J18.9 - Pneumonia, unspecified organism Discharge ED Provider: Sarah Cook General Adult HPI General Chief complaint: Altered Mental Status Stated complaint: altered mental Time Seen by Provider: 02/09/23 03:12 Mode of Arrival: EMS Source of Information: Patient and EMS Limitations: Altered Mental Status Description of Symptoms (Recalled from ER Triage Doc. by RN): EMS called to patients house for complaints of altered mental status, hypoglycemic. On arrival to scene per EMS patients oxygen saturations was 32%, applied NRB and initatited Duoneb. On arrival to ER patient is confused only answers a couple quesions then falls back asleep. History of Present Illness HPI narrative: This patient is a 67-year-old female with a history of metastatic cancer, emphysema, and chronic respiratory failure on home oxygen presenting to the emergency department by EMS for altered mental status. According to EMS, they were called to the patient's home by her for altered mental status and increased work of breathing. When they got there, they noted that she was hypoxic with an oxygen saturation in the 30s on room air. They applied a nonrebreather and initiated DuoNeb. They also checked a fingerstick, which was low, though they cannot remember the value. They gave her glucose, which improved her fingerstick. They note that the patient was very confused. Patient at this time is only oriented to person, and does not further contribute to history. arrived a short time later and explained that the patient has a history of liver cancer. On medical record review, it is unclear if this is primary liver cancer or cancer that is metastatic to the liver from the lung. He notes that the patient knocked her oxygen off sometime during the night, and when he woke she was in respiratory distress. He stated that she had had a really good day all day yesterday and had actually been doing very well. He notes that she does currently have pneumonia, for which she is on antibiotics but he does not know which ones. He also is unsure of how much oxygen she is supposed to be on at home. He notes that she has previously been on chemotherapy, but he cannot member when her last treatment was. He notes that hospice was out of their house yesterday setting up, as the patient is supposed to go on hospice in the future. He notes that she is not currently on hospice. When asked about her CODE STATUS, he states that she is a full code until he speaks with her daughter to verify things. Related Data Home Medications Medication Instructions Recorded Confirmed No Known Home Medications 02/09/23 02/09/23 Allergies Allergy/AdvReac Type Severity Reaction Status Date / Time No Known Allergies Allergy Unverified 04/16/17 14:40 [facility] Disclaimer: The information contained in this section may have been updated after the patient was seen, as this information can be updated by other users. Social History Smoking Status: Unknown if ever smoked alcohol intake: never current occupational status: employed Travel in the last 8 weeks: None ROS Obtained: Yes unobtainable due to mental status Physical Exam General General appearance: obtunded and in distress Comment: Somnolent, arouses to voice. Confused. Very ill-appearing. Tachypneic and in obvious respiratory distress Head Head exam: atraumatic and normocephalic Eye Eye exam: Present normal appearance, PERRL and
[2023-02-09 04:37] LABS: Bacteria,Urine 1+ /lpf; Mucus,Urine 1+ /lpf
--- NOTE | 2023-02-09 05:07 | HMH.ITSTN ---
PATIENT GFR 41. NURSE GAVE 250 ML BOLUS PRIOR TO SCAN AND CONTRAST REDUCED TO 60 ML
--- NOTE | 2023-02-09 05:41 | PC.NURSE ---
Dr Cook speaking with hospitalist about admission
--- NOTE | 2023-02-09 05:42 | PC.NURSE ---
white sugar supervisor notified of admission
--- NOTE | 2023-02-09 05:56 | PC.NURSE ---
Hospitalist in room talking with patient at this time.
--- NOTE | 2023-02-09 05:58 | PC.NURSE ---
report given to KODY Serrano
--- NOTE | 2023-02-09 06:16 | PC.NURSE ---
Pt arrived to the floor via stretcher @ 1882
--- NOTE | 2023-02-09 06:21 | EXP.HP ---
History of Present Illness *Admission Date: 02/09/23 *Reason for visit:: Pneumonia *History of present illness: 67 year old female presented to the ED via ems for c/o AMS after being found down by . Pt wears 2L of o2 at home and was found at 230 in the morning without oxygen on. Upon arrival to the ED the pt was still in respiratory distress requiring several breathing treatments and increased oxygen requirements. PMHX of COPD, tobacco abuse, lung and liver cancer, and HTN. and pt are both poor historians. Oncologist is with [facility]. Unknown when last chemo treatment was or what the plan is. Recently admitted to [facility] for COPD exacerbation. Dx on Saturday and sent home with antibiotics for pneumonia. Her ED workup reveals a decreased Hgb of 9.9, decreased platelet 132, creatinine of 1.30, and her CTA of the chest revealed RLL pneumonia, bilateral pleural effusions, and centrilobular emphysema. The CT of her abd reveals stable hypodensities in both lobes of liver and thickening of the right colon extending into the transverse colon. The pt was started on antibiotics, steroids, and breathing treatments. The wants the pt to remain a fullcode. [facility] ED physicain consulted the hospitalist team for further medical management. On exam the pt is wearing 5L of oxygen, she is alert and oriented, but is still wheezing. Due to her acute on chronic respiratory failure, she was admitted to the step down unit. She will continue to receive treatment for her pneumonia. Awaiting to obtain medical records regrading other prior medical history. [facility] Disclaimer: The information contained in this section may have been updated after the patient was seen, as this information can be updated by other users. Medical History (Updated 02/09/23 @ 11:36 by Sarah Lauren RN) Cancer of kidney Cholecystectomy planned COPD (chronic obstructive pulmonary disease) Emphysema lung Hypertension Liver cancer Lung cancer Rheumatoid arthritis Surgical History (Updated 02/09/23 @ 11:36 by Sarah Lauren RN) H/O section Family History (Updated 02/09/23 @ 11:38 by Sarah Lauren RN) Diabetes Coronary artery disease Hyperlipidemia Kidney failure COPD (chronic obstructive pulmonary disease) Hypertension Stroke Social History (Updated 02/09/23 @ 11:42 by Sarah Lauren RN) Smoking Status: Former smoker alcohol intake: former current occupational status: employed and retired Travel in the last 8 weeks: None housing: house marital status: education level: high school pets and animals: No Review of Systems *Cardiovascular Cardiovascular: Reports system reviewed and no additional complaints, except as documented and Reports dyspnea *Respiratory Respiratory: Reports dyspnea and Reports wheezing *Gastrointestinal Gastrointestinal: Reports system reviewed and no additional complaints, except as documented *Genitourinary Genitourinary: Reports system reviewed and no additional complaints, except as documented *Musculoskeletal Musculoskeletal: Reports limited range of motion *Neurologic Neurologic: Reports system reviewed and no additional complaints, except as documented Allergic/Immunologic Allergic/Immunologic: Reports wheezing Meds Home Medications and Allergies Home Medications Medication Instructions Recorded Confirmed Type carvedilol 6.25 mg tablet 6.25 mg PO BIDWMEAL High Blood 02/09/23 02/09/23 History Pressure folic acid 1 mg tablet 1 mg PO DAILY Supplement 02/09/23 02/09/23 History gabapentin 300 mg capsule 600 mg PO HS CANCER PAIN 02/09/23 02/09/23 History ondansetron 4 mg disintegrating 4 mg PO Q6H Nausea And Vomiting 02/09/23 02/09/23 History tablet oxycodone 10 mg tablet 20 mg PO TIDP PRN CANCER PAIN 02/09/23 02/09/23 History pantoprazole 40 mg tablet,delayed 40 mg PO BID Acid Reflux 02/09/23 02/09/23 History release prochlorperazine maleate 10 mg 1
[2023-02-09 07:10] LABS: Adenovirus,PCR Not Detected (NotDetected); Coronavirus 19, PCR Not Detected (NotDetected); Coronavirus 229E Not Detected (NotDetected); Coronavirus NL63 Not Detected (NotDetected); Coronavirus OC43 Not Detected (NotDetected); Coronovirus HKU1,PCR Not Detected (NotDetected); Human Metapneumovirus Not Detected (NotDetected); Influenza A, PCR Not Detected (NotDetected); Influenza AH1, 2009 Not Detected (NotDetected); Influenza AH1, PCR Not Detected (NotDetected); Influenza AH3,PCR Not Detected (NotDetected); Influenza B, PCR Not Detected (NotDetected); Parainfluenza 1, PCR Not Detected (NotDetected); Parainfluenza 2, PCR Not Detected (NotDetected); Parainfluenza 3, PCR Not Detected (NotDetected); Parainfluenza 4, PCR Not Detected (NotDetected); Respiratory Syncytial Virus Not Detected (NotDetected); Rhinovirus/Enterovirus Not Detected (NotDetected)
--- NOTE | 2023-02-09 07:11 | PC.NURSE ---
Pt and unable to provide pts home med list. Pt states he will have another family member bring in home meds this am to do med rec.
--- NOTE | 2023-02-09 08:09 | EXP.PHA.CONS ---
Pharmacy Consult Date: 02/09/23 Time: 08:09 Referring provider: DR RAMON Reason for Consult:: VANCOMYCIN DOSING CONSULT Allergies Allergy/AdvReac Type Severity Reaction Status Date / Time No Known Allergies Allergy Unverified 04/16/17 14:40 Home Medications Medication Instructions Recorded Confirmed Type No Known Home Medications 02/09/23 02/09/23 History New Prescriptions to Start Prescriptions: Height: 1.65 m Weight: 68.266 kg Laboratory Results:: Laboratory Results - last 24 hr 02/09/23 03:03: POC Glucose 124 H 02/09/23 03:09: VBG pH 7.24 L, VBG pCO2 55.3 H, VBG pO2 111.7 H, VBG HCO3 23.1, VBG Total CO2 24.8, VBG O2 Saturation 97.3 H, VBG Base Excess -4.3 L 02/09/23 03:18: WBC 5.0, RBC 3.03 L, Hgb 9.9 L, Hct 29.4 L, MCV 96.9, MCH 32.5 H, MCHC 33.5, RDW 22.1 H, Plt Count 132 L, MPV 10.4, Neut % (Auto) 78.1, Lymph % (Auto) 9.0 L, [place] % (Auto) 11.5 H, Eos % (Auto) 0.7, Baso % (Auto) 0.6, Neut # (Auto) 3.9, Lymph # (Auto) 0.5 L, [place] # (Auto) 0.6, Eos # (Auto) 0.0, Baso # (Auto) 0.0, Sodium 132 L, Potassium 4.1, Chloride 101, Carbon Dioxide 27, Anion Gap 8.1, BUN 24 H, Creatinine 1.30 H, Estimated Creat Clear 49, Estimated GFR 41 L, Est GFR ( Amer) 50 L, Glucose 113 H, Lactate 1.3, Calcium 7.8 L, Total Bilirubin 1.2, AST 49 H, ALT 26, Alkaline Phosphatase 140 H, Troponin I 0.08 H, Total Protein 5.5 L, Albumin 2.7 L, Globulin 2.8, Albumin/Globulin Ratio 1.0 L, TSH 2.89, Thyroxine (T4) 7.3 02/09/23 04:08: Urine Color Dark yellow, Urine Appearance Clear, Urine pH 6.0, Ur Specific [place] 1.025, Urine Protein 1+, Urine Glucose (UA) Negative, Urine Ketones Negative, Urine Blood Negative, Urine Nitrate Negative, Urine Bilirubin 1+ A, Urine Urobilinogen 2.0, Ur Leukocyte Esterase Negative, Urine RBC None, Urine WBC 5-10, Ur Squamous Epith Cells 3-5, Urine Bacteria 1+, Hyaline Casts 10-20, Urine Mucus 1+ Assessment and Plan Assessment and plan all Dx Assessment and Plan for all problems:: Pharmacokinetic dosing service Objective: Age: 67 yo Serum creatinine: 1.3 mg/dL Height: 65.0 Inches Weight (kg): 68.266 Diagnosis: PNEUMONIA Assessment: IBW (kg): 57.00 Dosing wt(kg): 68.266 Estimated Creatinine clearance (ml/min): 38.8 CRCL method: Cockcroft and Gault using ibw(default). Drug selected: Vancomycin Loading dose (mg): 1250 MG Vd (liters): 47.8 (factor used: 0.7 L/kg) Gus (hr-1): 0.037 Half life (hrs): 18.73 CLvanco=?? 1.769 L/hr Recommended dose: 1000 mg Interval: 24 hrs Infusion time (hrs): 2.0 Predicted peak (mcg/mL): 34.3 Predicted trough (mcg/mL): 15.20 Total body weight is being used for vancomycin dosing. Recommendations: Give Vancomycin 1000 mg q 24 hrs with an expected Cpeak of 34.3 mcg/ml and an expected Ctrough of 15.20 mcg/ml TO START 02/10/23 AT 0500, FIRST DOSE OF VANCOMYCIN 1250 MG IV GIVEN 02/09/23 AT 0453. AUC 0-24 /UGO Data: UGO 0.5 mcg/mL:?? AUC/UGO:? 1130.6 UGO 1.0 mcg/mL:?? AUC/UGO:? 565.3 --------- UGO 1.5 mcg/mL:?? AUC/UGO:? 376.9 UGO 2.0 mcg/mL:?? AUC/UGO:? 282.6 Thank you for the consult
[2023-02-09 08:18] LABS: Troponin I 0.09 ng/ml (0.00-0.034)
[2023-02-09 09:55] LABS: Troponin I 0.09 ng/ml (0.00-0.034)
--- NOTE | 2023-02-09 11:22 | PC.NURSE ---
Addendum entered by Sarah Lauren RN 02/09/23 17:06: Dr Santiago decreased pt o2 to 3lpm at this time Original Note: 1115 While in pt room, Dr Santiago decreased pt o2 to 4lpm
--- NOTE | 2023-02-09 11:36 | HMH.PHAINT1 ---
Pharmacy Intervention Comments: MEDICATION RECONCILIATION COMPLETE USING RX BOTTLES PROVIDED BY PATIENT'S FAMILY.
--- NOTE | 2023-02-09 17:23 | PC.NURSE ---
pt has rested in bed with her sister at bedside. pt appears to be a poor historian, she is confused on some details of her medical history and requires correction by her sister. pt elle was removed late this afternoon, she was up to the bedside and was able to void at approx 1700. lungs are diminished throughout with expiratory wheezes. pt left base is more diminished in tight sounding to auscultation. nad noted
[2023-02-09 17:48] LABS: Chloride 104 mmol/L (98-107)
[2023-02-09 17:49] LABS: Potassium 3.5 mmoL/L (3.5-5.1); Sodium 135 mmol/L (136-145)
[2023-02-09 17:51] LABS: Blood Urea Nitrogen 24 mg/dl (7-17); Creatinine Clearance Estimated 46 mL/min (50-200); Estimated Glomerular Filt Rate 41 ml/min (>60); GFR (African American) 50 ML/MIN (>60)
[2023-02-09 17:52] LABS: Anion Gap 10.5 mEq/L (5-15); Calcium 7.5 mg/dl (8.4-10.2); Carbon Dioxide 24 mmol/L (22.0-30.0); Glucose 206 mg/dl (74-100)
[2023-02-10] VITALS (17 sets, daily range): BP systolic 107–140; BP diastolic 64–83; PULSE 65–80; RESP 18–20; TEMP 36.3–36.9; O2SAT 91–95; BMI 25.0; BMI 244906.0
[2023-02-10 05:00] LABS: Occult Blood,Stool Negative (Negative)
--- NOTE | 2023-02-10 06:54 | PC.NURSE ---
Patient has rested well this shift, c/o pain to back twice medicated per orders. Patient had one bowel movement: stool sent-negative occult. Patient remains on 3lns been stating >90%, does destat with exertion but recovers quickly. No acute changes noted.
[2023-02-10 07:11] LABS: Chloride 105 mmol/L (98-107); Sodium 136 mmol/L (136-145)
[2023-02-10 07:12] LABS: Potassium 3.6 mmoL/L (3.5-5.1)
[2023-02-10 07:14] LABS: Alanine Aminotransferase 25 U/L (12-78); Alkaline Phosphatase 120 U/L (38-126); Anion Gap 7.6 mEq/L (5-15); Aspartate Amino Transferase 52 U/L (14-36); Bilirubin,Total 0.6 mg/dl (0.2-1.3); Blood Urea Nitrogen 30 mg/dl (7-17); Calcium 7.4 mg/dl (8.4-10.2); Carbon Dioxide 27 mmol/L (22.0-30.0); Creatinine Clearance Estimated 50 mL/min (50-200); Estimated Glomerular Filt Rate 45 ml/min (>60); GFR (African American) 55 ML/MIN (>60); Glucose 129 mg/dl (74-100)
[2023-02-10 07:15] LABS: Albumin Level 2.3 g/dl (3.5-5.0); Globulin 2.4 g/dL (1.3-3.2); Magnesium 1.6 mg/dl (1.6-2.3); Total Protein,Serum 4.7 g/dl (6.3-8.2)
[2023-02-10 07:22] LABS: Eosinophils % 0.2 % (0.1-12.0); Hematocrit 25.6 % (37.0-47.0); Hemoglobin 8.5 g/dL (12.2-16.2); Lymphocytes # 0.5 K/mm3 (0.7-4.5); Lymphocytes % 9.1 % (10-50); Mean Corpuscular HGB Conc 33.2 g/dL (31.8-35.4); Mean Corpuscular Hemoglobin 32.1 pg (27.0-31.2); Mean Corpuscular Volume 96.5 fl (81-99); Mean Platelet Volume 10.2 fl (7.4-10.4); Monocytes # 0.4 K/mm3 (0.1-1.0); Monocytes % 7.2 % (1.7-9.3); Neutrophils # 4.1 K/mm3 (1.8-7.8); Neutrophils % 83.5 % (37.0-80.0); Platelet Count 127 K/mm3 (142-424); Red Blood Count 2.65 M/mm3 (4.20-5.40); Red Cell Distribution Width 23.1 % (11.5-17.5); White Blood Count 4.9 K/mm3 (4.8-10.8)
--- NOTE | 2023-02-10 09:38 | EXP.ACUTE.PN ---
Subjective *Date: 02/10/23 *Time: 09:38 Interval history: Patient states she feels little better today. Weaned to 3 L nasal cannula oxygen overnight, weaned to 2 L during rounds. Diuresing well, -1 L in the past 24 hours. Tolerating p.o. intake. No nausea or vomiting. Denies any chest pain. Edema improving in legs. Medical Exam Vital signs and Labs for Last 24 Hours: Vital Signs Temp Pulse Pulse Pulse Resp BP BP 02/10/23 07:35 97.4 F L 02/10/23 06:00 71 18 122/72 02/10/23 06:20 68 02/10/23 06:20 72 02/10/23 06:20 02/10/23 04:00 70 02/10/23 04:00 70 18 128/78 02/10/23 03:00 02/10/23 00:00 80 02/10/23 00:00 98.5 F 02/10/23 00:02 74 02/10/23 00:01 76 02/10/23 02:00 71 18 107/64 L 02/09/23 20:00 70 02/09/23 21:00 74 16 109/62 L 02/09/23 21:07 74 16 02/09/23 21:00 02/09/23 20:00 98.5 F 02/09/23 18:55 02/09/23 16:00 70 02/09/23 18:00 73 22 123/51 L 02/09/23 18:04 73 02/09/23 18:03 72 02/09/23 18:03 02/09/23 17:00 72 02/09/23 17:11 02/09/23 16:00 72 20 107/67 L 02/09/23 16:00 02/09/23 16:00 97.9 F 68 19 108/61 L 02/09/23 15:15 02/09/23 15:00 67 20 89/50 L 02/09/23 13:00 02/09/23 12:00 60 02/09/23 11:00 02/09/23 12:00 61 20 129/72 02/09/23 12:04 63 16 02/09/23 12:00 63 02/09/23 12:00 61 02/09/23 12:00 02/09/23 12:00 98.2 F 02/09/23 10:00 61 20 97/58 L Pulse Ox O2 Del Method O2 Flow Rate 02/10/23 07:35 02/10/23 06:00 92 L 02/10/23 06:20 02/10/23 06:20 02/10/23 06:20 91 L Nasal Cannula 3 02/10/23 04:00 02/10/23 04:00 94 L Nasal Cannula 3 02/10/23 03:00 Nasal Cannula 3 02/10/23 00:00 02/10/23 00:00 02/10/23 00:02 02/10/23 00:01 02/10/23 02:00 92 L Nasal Cannula 3 02/09/23 20:00 02/09/23 21:00 95 Nasal Cannula 3 02/09/23 21:07 92 L Nasal Cannula 3 02/09/23 21:00 Nasal Cannula 3 02/09/23 20:00 02/09/23 18:55 Nasal Cannula 3 02/09/23 16:00 02/09/23 18:00 100 Aerosol Mask 02/09/23 18:04 02/09/23 18:03 02/09/23 18:03 90 L Nasal Cannula 3 02/09/23 17:00 91 L Nasal Cannula 3 02/09/23 17:11 Nasal Cannula 3 02/09/23 16:00 91 L Nasal Cannula 4 02/09/23 16:00 92 L Nasal Cannula 4 02/09/23 16:00 92 L Nasal Cannula 4 02/09/23 15:15 Nasal Cannula 4 02/09/23 15:00 97 Nasal Cannula 4 02/09/23 13:00 Nasal Cannula 4 02/09/23 12:00 02/09/23 11:00 Nasal Cannula 4 02/09/23 12:00 100 Nasal Cannula, Aerosol Mask 02/09/23 12:04 02/09/23 12:00 02/09/23 12:00 02/09/23 12:00 95 Nasal Cannula 4 02/09/23 12:00 02/09/23 10:00 94 L Nasal Cannula 5 Intake and Output 02/09/23 02/10/23 02/10/23 23:59 07:59 15:59 Intake Total 340 / 2030 1060 / 1060 Output Total 1750 / 2950 650 / 800 150 / 800 Balance -1410 / -920 410 / 260 -150 / 260 Intake: Intake, Oral Amount 240 / 830 360 / 360 Intake, Total IV Amount 100 / 1200 700 / 700 Azithromycin 500 mg In 0.9 % 250 / 250 Sodium Chloride 250 ml @ 250 mls/hr IV Q24H [facility] Rx#:[id number] Cefepime HCl 2 gm In 0.9 % 100 / 200 100 / 100 Sodium Chloride 100 ml @ 200 mls/hr IV ONCE ONE Rx#:[id number] Cefepime HCl 2 gm In 0.9 % 100 / 100 Sodium Chloride 100 ml @ 200 mls/hr IV Q12H [facility] Rx#:[id number] Vancomycin HCl 1,000 mg In 0.9 250 / 250 % Sodium Chloride 250 ml @ 125 mls/hr IV Q24H [facility] Rx#:[id number] Output: Output, Urine Amount 1750 / 2750 650 / 800 150 / 800 Other: Number of Voids 0 Number of Unmeasured Voids 1 1 Number of Bowel Movements 1 Weight 68.266 kg Patient Weight 02/10/23 23:59 Weight 68.266 kg Laboratory Re
--- NOTE | 2023-02-10 10:06 | PC.NURSE ---
start of shift pt o2 was 3lpm on nc. o2 decreased by Lizbeth in RT at 0820. o2 at 2lpm
--- NOTE | 2023-02-10 10:08 | PC.NURSE ---
during am rounds per caitlin Jones to transfer pt out of sd to ms 0947
--- NOTE | 2023-02-10 16:04 | PC.NURSE ---
pt has been active in her room this shift. she is able to stand up and move to chair and/or bsc with standby assist. she is able to balance on her own as well. pt lung sounds have scattered expiratory wheezes which is an improvement from previous assessment. pt is a/o x 4. bowel sounds are active in all quads. pt had bm this am. nad noted.
[2023-02-10 20:27] LABS: POC Glucose,Bedside 136 (70-110)
[2023-02-11] VITALS (7 sets, daily range): BP systolic 106–147; BP diastolic 58–79; PULSE 71–80; RESP 18–20; TEMP 36.5–36.6; O2SAT 92–95; BMI 24.3; BMI 24.5
--- NOTE | 2023-02-11 05:17 | PC.NURSE ---
Pt AOx4 throughout shift and required minimum assistance to transfer from bed to to void. Pt remained on 2 L NC throughout night with minimum SpO2 of 90%. Pt visibly SOB upon exertion, but able to catch breath upon rest on 2 L NC. Pain and comfort needs addressed, pt able to reposition self in bed, VSS. Sterile dressing applied to port. No acute needs at this time.
[2023-02-11 06:40] LABS: Chloride 106 mmol/L (98-107); Potassium 3.3 mmoL/L (3.5-5.1); Sodium 138 mmol/L (136-145)
[2023-02-11 06:41] LABS: Basophils % 0.2 % (0.1-2.0); Eosinophils # 0.1 K/mm3 (0.0-0.4); Eosinophils % 0.9 % (0.1-12.0); Hematocrit 26.6 % (37.0-47.0); Hemoglobin 8.9 g/dL (12.2-16.2); Lymphocytes # 0.9 K/mm3 (0.7-4.5); Lymphocytes % 14.1 % (10-50); Mean Corpuscular HGB Conc 33.3 g/dL (31.8-35.4); Mean Corpuscular Hemoglobin 31.9 pg (27.0-31.2); Mean Corpuscular Volume 95.9 fl (81-99); Mean Platelet Volume 10.1 fl (7.4-10.4); Monocytes % 16.6 % (1.7-9.3); Neutrophils # 4.3 K/mm3 (1.8-7.8); Neutrophils % 68.2 % (37.0-80.0); Platelet Count 151 K/mm3 (142-424); Red Blood Count 2.78 M/mm3 (4.20-5.40); Red Cell Distribution Width 23.5 % (11.5-17.5); White Blood Count 6.2 K/mm3 (4.8-10.8)
[2023-02-11 06:43] LABS: Alanine Aminotransferase 27 U/L (12-78); Albumin Level 2.3 g/dl (3.5-5.0); Alkaline Phosphatase 124 U/L (38-126); Anion Gap 5.3 mEq/L (5-15); Aspartate Amino Transferase 50 U/L (14-36); Bilirubin,Total 0.6 mg/dl (0.2-1.3); Blood Urea Nitrogen 28 mg/dl (7-17); Calcium 7.3 mg/dl (8.4-10.2); Carbon Dioxide 30 mmol/L (22.0-30.0); Creatinine Clearance Estimated 59 mL/min (50-200); Estimated Glomerular Filt Rate 56 ml/min (>60); GFR (African American) 67 ML/MIN (>60); Globulin 2.3 g/dL (1.3-3.2); Glucose 84 mg/dl (74-100); Total Protein,Serum 4.6 g/dl (6.3-8.2)
[2023-02-11 06:57] LABS: Magnesium 1.8 mg/dl (1.6-2.3)
--- NOTE | 2023-02-11 07:44 | EXP.DC.SUM ---
General Admission date:: 02/09/23 Discharge date: 02/11/23 HPI HPI HPI: 67 year old female presented to the ED via ems for c/o AMS after being found down by . Pt wears 2L of o2 at home and was found at 230 in the morning without oxygen on. Upon arrival to the ED the pt was still in respiratory distress requiring several breathing treatments and increased oxygen requirements. PMHX of COPD, tobacco abuse, lung and liver cancer, and HTN. and pt are both poor historians. Oncologist is with [facility]. Unknown when last chemo treatment was or what the plan is. Recently admitted to [facility] for COPD exacerbation. Dx on Saturday and sent home with antibiotics for pneumonia. Her ED workup reveals a decreased Hgb of 9.9, decreased platelet 132, creatinine of 1.30, and her CTA of the chest revealed RLL pneumonia, bilateral pleural effusions, and centrilobular emphysema. The CT of her abd reveals stable hypodensities in both lobes of liver and thickening of the right colon extending into the transverse colon. The pt was started on antibiotics, steroids, and breathing treatments. The wants the pt to remain a fullcode. [facility] ED physicain consulted the hospitalist team for further medical management. On exam the pt is wearing 5L of oxygen, she is alert and oriented, but is still wheezing. Due to her acute on chronic respiratory failure, she was admitted to the step down unit. She will continue to receive treatment for her pneumonia. Awaiting to obtain medical records regrading other prior medical history. Hospital Course Hospital Course Hospital Course: 67 year old female presented to the ED via ems for c/o AMS after being found down by . Pt wears 2L of o2 at home and was found at 230 in the morning without oxygen on. Upon arrival to the ED the pt was still in respiratory distress requiring several breathing treatments and increased oxygen requirements. PMHX of COPD, tobacco abuse, lung and liver cancer, and HTN. and pt are both poor historians. Oncologist is with [facility]. Unknown when last chemo treatment was or what the plan is. Recently admitted to [facility] for COPD exacerbation. Dx on Saturday and sent home with antibiotics for pneumonia. Her ED workup reveals a decreased Hgb of 9.9, decreased platelet 132, creatinine of 1.30, and her CTA of the chest revealed RLL pneumonia, bilateral pleural effusions, and centrilobular emphysema. Admitted for pneumonia and volume overload. Responded well to diuresis and antibiotics. Able to wean oxygen to 2 L which is her baseline. Stable for discharge home. Close follow-up with her oncology team at [facility] later this week. Problems addressed as follows during admission: PNEUMONIA COPD EXACERBATION -Recently admitted at [facility] for anemia. Received multiple transfusions of platelets and packed red blood cells. Was admitted from 10 4-10 9. Followed up on with her primary care team who transfused a liter of fluid. Patient developed increased oxygen requirement within 24 hours. Presented with 5 L oxygen requirement. Chest imaging concerning for pneumonia on CTA with right lower lobe consolidation. Patient was initiated on IV antibiotics with cefepime and vancomycin for hospital-acquired pneumonia given exposures and inpatient care. Transitioned to oral Levaquin to complete short course for pneumonia. Was diuresed as below with good response. Improved oxygenation as patient achieved euvolemia. COVID and respiratory panel were negative. Blood and urine cultures negative at time of discharge. Edema -Concern for component of volume overload given administration of a liter of IV fluids as an outpatient the day before she presented with increased oxygen requirement. Diuresed daily with Lasix. Responded well with negative volume balance during admission. Able to wean to baseline oxygen. Recommend continuing Lasix 40 mg orally daily for the next week
--- NOTE | 2023-02-11 10:15 | HMH.PHAINT1 ---
Pharmacy Intervention Comments: DISCHARGE MEDICATION COUNSELING PROVIDED. DISCUSSED STARTING THE FOLLOWING: -FUROSEMIDE (FLUID PILL, TAKE DAILY IN THE MORNING, INCREASED URINATION, DIZZINESS, LIGHT HEADEDNESS, LOW POTASSIUM LEVELS POSSIBLE) -LEVOFLOXACIN (ANTIBIOTIC, DAILY ,TAKE WITH FOOD, N/V/D POSSIBLE) PATIENT VERBALIZED NO QUESTIONS AT THIS TIME.
--- NOTE | 2023-02-11 10:24 | PC.NURSE ---
removed pt's IV in Left AC and deaccessed pt's port, pt's on the way and will call pt when he is ready at the front entrance to pick her up
--- NOTE | 2023-02-11 10:44 | SW/DCPLANNER ---
Patient is planned to return home today w/ family. Patient is currently established w/ [facility]. I did call and speak w/ [facility] to confirm patient is a mutual patient: updated information has been faxed. Patient will discharge home today.
--- NOTE | 2023-02-12 14:49 | CARE MANAGER ---
Patient reports she is feeling better. She reports not needing Oxygen right now. She denies questions or concerns and home health nurse is coming later today. KODY Fishman
== END 2023-02-11 10:47 | disposition home health service (06) | DRG 194 ==
LOC: ER 05:36 → 2ND 06:03
PROVIDERS: Internal Medicine Adolescent Medicine; Nurse Practitioner Critical Care Medicine; Admitting Provider Family Medicine; Emergency Provider Emergency Medicine; PCP Pediatrics; Visit Provider Family Medicine
DX: J18.1 Lobar pneumonia, unspecified organism (principal); C22.9 Malignant neoplasm of liver, not specified as primary or secondary; C34.90 Malignant neoplasm of unspecified part of unspecified bronchus or lung; N17.9 Acute kidney failure, unspecified; Z72.0 Tobacco use; Z99.81 Dependence on supplemental oxygen; D63.0 Anemia in neoplastic disease; J43.2 Centrilobular emphysema; Z85.528 Personal history of other malignant neoplasm of kidney; M06.9 Rheumatoid arthritis, unspecified; Z86.73 Personal history of transient ischemic attack (TIA), and cerebral infarction without residual deficits
CPT/HCPCS: 36415; 70450; 71045; 71275; 74160; 80048; 80053; 81001; 82272; 82803; 82962; 83605; 83735; 84436; 84443; 84484; 85025; 87040; 87070; 87205; 87632; 87635; 93005; 94640; 99291; G0328; J0456; J3370; J3475; Q9967

== ENCOUNTER 2024-07-11 17:56 | Emergency (ER) | payer MEDICARE, OTHER, SELFPAY ==
[2024-07-11 17:57] VITALS: BP 180/108; PULSE 77; RESP 14; TEMP 36.6; O2SAT 95; BMI 19.0
[2024-07-11 18:00] VITALS: BP 204/107; PULSE 77; RESP 19; O2SAT 97
--- NOTE | 2024-07-11 18:02 | XR_ITS ---
PROCEDURE INFORMATION: Exam: XR Left Hip Exam date and time: 07/11/2024 6:32 PM Age: 69 years old Clinical indication: Other: L sided fracture vs dislocatoin TECHNIQUE: Imaging protocol: Radiologic exam of the left hip. Views: 2 or 3 views hip with pelvis when performed. COMPARISON: CT ABDOMEN W CON 02/09/2023 4:50 AM FINDINGS: Bones/joints: Mildly displaced, impacted angulated left femoral neck fracture without dislocation. Soft tissues: Unremarkable. IMPRESSION: Left femoral neck fracture.
--- NOTE | 2024-07-11 18:02 | XR_ITS ---
PROCEDURE INFORMATION: Exam: XR Left Femur Exam date and time: 07/11/2024 6:32 PM Age: 69 years old Clinical indication: Other: L sided fracture vs dislocatoin; Additional info: Left sided fracture vs dislocation TECHNIQUE: Imaging protocol: Radiologic exam of the left femur. Views: 2 views. COMPARISON: CR XR FEMUR LT 2V 07/11/2024 6:32 PM FINDINGS: Bones/joints: Mildly displaced, impacted, angulated, left femoral neck fracture without dislocation. Soft tissues: Unremarkable. IMPRESSION: Left femoral neck fracture.
[2024-07-11] MEDS: KETOROLAC 30MG/ML VIAL 15 MG IV (18:21)
[2024-07-11] MEDS: FENTANYL 100MCG/2ML VIAL 50 MCG IV (18:21)
[2024-07-11 18:30] VITALS: BP 201/98; PULSE 73; RESP 20; O2SAT 98
--- NOTE | 2024-07-11 18:55 | HMH.EDGENADL ---
Discharge Plan Disposition Patient Disposition: Home, Self-Care Chief Complaint: PAIN Prescriptions Prescriptions: No Action carvedilol 6.25 mg tablet 6.25 mg PO BIDWMEAL Patient Comments: TAKE 1 TABLET BY MOUTH 2 TIMES DAILY (WITH MEALS). sertraline 100 mg tablet 100 mg PO DAILY Patient Comments: TAKE 1 TABLET BY MOUTH DAILY. prochlorperazine maleate 10 mg Tablet 10 mg PO Q6HP PRN (Reason: Nausea And Vomiting) pantoprazole 40 mg tablet,delayed release (DR/EC) 40 mg PO BID gabapentin 300 mg capsule 600 mg PO HS Patient Comments: TAKE 2 CAPSULES BY MOUTH NIGHTLY FOR PAIN DUE TO CANCER. folic acid 1 mg tablet 1 mg PO DAILY Patient Comments: TAKE 1 TABLET BY MOUTH ONCE DAILY. ondansetron 4 mg tablet,disintegrating 4 mg PO Q6H Patient Comments: PLACE 1 TABLET UNDER THE TONGUE EVERY 6 HOURS. oxycodone 10 mg tablet 20 mg PO TIDP PRN (Reason: CANCER PAIN) Patient Comments: TAKE 1 TO 2 TABLETS BY MOUTH EVERY 3 HOURS NEEDED FOR CANCER PAIN FOR UP TO 7 DAYS. furosemide 40 mg Tablet 40 mg PO DAILY 10 Days Qty: 10 0RF levofloxacin 750 mg Tablet 750 mg PO 1100 2 Days Qty: 2 0RF Referrals Follow up/Referrals: Walker Capps [Primary Care Provider] - See instructions Clinical Impressions Clinical Impression: Closed fracture of neck of left femur Print Language Print Language: [place] Discharge ED Provider: Nigel Anderson General Adult HPI <Sara Perez APRN - Last Filed: 07/11/24 18:56> General Chief complaint: PAIN Stated complaint: FALL Time Seen by Provider: 07/11/24 18:02 Mode of Arrival: EMS Source of Information: Patient Description of Symptoms (Recalled from ER Triage Doc. by RN): pt reports falling from a standing position in the bathroom this AM. pt states she fell on her L side. pt c/o L hip/femur pain. pt states the pain is 8/10 and sharp. pulses intact. sensation intact. pt states she took a 10mg percocet about 10 minutes prior to EMS arrival at her house. pt states she has end stage liver cancer. pt has stopped all oncology treatments. pt does report she has a PET scan coming up. Related Data Home Medications ?Medication ?Instructions ?Recorded ?Confirmed carvedilol 6.25 mg tablet 6.25 mg PO BIDWMEAL High Blood 02/09/23 02/09/23 Pressure folic acid 1 mg tablet 1 mg PO DAILY Supplement 02/09/23 02/09/23 gabapentin 300 mg capsule 600 mg PO HS CANCER PAIN 02/09/23 02/09/23 ondansetron 4 mg disintegrating 4 mg PO Q6H Nausea And Vomiting 02/09/23 02/09/23 tablet oxycodone 10 mg tablet 20 mg PO TIDP PRN CANCER PAIN 02/09/23 02/09/23 pantoprazole 40 mg tablet,delayed 40 mg PO BID Acid Reflux 02/09/23 02/09/23 release prochlorperazine maleate 10 mg 10 mg PO Q6HP PRN Nausea And 02/09/23 02/09/23 tablet Vomiting sertraline 100 mg tablet 100 mg PO DAILY MOOD 02/09/23 02/09/23 Previous Rx's ?Medication ?Instructions ?Recorded furosemide 40 mg tablet 40 mg PO DAILY 10 days #10 tabs 02/11/23 levofloxacin 750 mg tablet 750 mg PO 1100 2 days #2 tabs 02/11/23 Allergies Allergy/AdvReac Type Severity Reaction Status Date / Time No Known Allergies Allergy Unverified 04/16/17 14:40 <Nigel Anderson MD - Last Filed: 07/11/24 20:15> History of Present Illness HPI narrative: Please note that above description of symptoms, in this electronic medical record under categorization of recalled from ER triage doctor by RN are reflective of an initial nursing assessment, however, is not reflective of my full history and physical exam that was personally taken and clarified. Consequentially, this preceding description of symptoms, which may include the patient's categorized chief complaint in the EMR, do not reflect my personal clinical impression, and the ultimate description of history of present illness and patient stated complaints should be deferred to this section of the note. Unless stated otherwise or congruent with this section of the note, additional signs, symptoms, or incongruence should be interpreted as inaccurate with my clinical impression. COUNT INCLUDES THE [facility] <Sara Perez APRN - Last Filed: 07/11/24 18:56> COUNT INCLUDES THE [facility] Disclaimer: The information contained in this section may have been updated after the patient was seen, as this information can be updated by other users. Medical History (Updated 07/11/24 @ 20:15 by Nigel Anderson MD) Cholecystectomy planned Rheumatoid arthritis Emphysema lung Hypertension Cancer of kidney Lung cancer Liver cancer COPD (chronic obstructive pulmonary disease) Surgical History (Updated 02/09/23 @ 11:36 by Sarah Lauren, RN) H/O section Family History (Updated 02/09/23 @ 11:38 by Sarah Lauren, RN) Other COPD (chronic obstructive pulmonary disease) Coronary artery disease Diabetes Hyperlipidemia Hypertension Kidney failure Stroke Social History (Updated 02/09/23 @ 11:42 by Sarah Lauren, RN) Smoking Status: Current every day smoker alcohol intake: former current occupational status: employed and retired Travel in the last 8 weeks: None housing: house marital status: education level: high school pets and animals: No Have you lived/traveled outside [place] in past 30 days?: No Contact w/someone who lives/traveled outside US past 30 days?: No Exposure to someone with infectious disease in past 14 days?: No Do you have a fever (greater than 100.4 F or 38 C)?: No Have you tested positive for COVID-19: No Exposed to someone with COVID-19 in past 14 days?: No Do you have a sore throat?: No Do you have a cough?: No Do you have any weakness?: No Do you have any diarrhea?: No Are you experiencing any unusual bleeding?: No Do you have any muscle aches/pain?: No Do you have any abdominal pain?: No Are you experiencing loss of taste or smell?: No Other Medical History Have you received the Flu Vaccine for this season: No Have you received the Pneumonia Vaccine: No <Nigel Anderson MD - Last Filed: 07/11/24 20:15> ROS Obtained: Yes All systems reviewed & no additional complaints except as documented Physical Exam <Nigel Anderson MD - Last Filed: 07/11/24 20:15> General General appearance: alert Head Head exam: atraumatic and normocephalic Eye Eye exam: Present normal appearance, PERRL and EOMI Neck Neck exam: Present normal inspection, full ROM and trachea midline Respiratory Respiratory exam: Absent respiratory distress, wheezes, stridor, accessory muscle use or prolonged expiratory phase Cardiovascular Cardiovascular exam: Present other (Pulses equal symmetric in upper and lower extremities) Abdominal Exam Abdominal exam: Present soft; Absent distention, tenderness or pulsatile mass Extremities Exam Extremities exam: Present other (Per MDM) Neurological Exam Neurological exam: Present alert, oriented X3 and CN II-XII intact; Absent motor sensory deficit Skin Skin exam: Present warm and dry; Absent diaphoresis or erythema Medical Decision Making <Sara Perez APRN - Last Filed: 07/11/24 18:56> Medical Records Screening: Per USPSTF and CDC recommendations, given the prevalence of disease in our region, it is our hospital?s policy to screen for HIV and viral Hepatitis for all patients aged 18 and over and those with ongoing risk factors. Vital Signs: 07/11/24 17:57 07/11/24 18:00 07/11/24 18:30 Temperature 97.9 F Temperature Source Oral Pulse Rate 77 73 Pulse Rate [Left] 77 Respiratory Rate 14 19 20 Blood Pressure 204/107 H 201/98 H Blood Pressure [Right Arm] 180/108 H Blood Pressure Mean [Right Arm] 132 Blood Pressure Source [Right Arm] Automatic Cuff Blood Pressure Position [Right Arm] Sitting 02 Sat by Pulse Oximetry 95 97 98 Oxygen Delivery Method Nasal Cannula Nasal Cannula Nasal Cannula Oxygen Flow Rate (LPM) 2 2 2 Lab Data Lab Results 07/11/24 18:13: WBC 6.1, RBC 4.73, Hgb 13.2, Hct 39.7, MCV 83.9, MCH 27.9, MCHC 33.2, RDW 15.2, Plt Count 121 L, MPV 11.8 H, Neut % (Auto) 79.3, Lymph % (Auto) 13.6, [place] % (Auto) 5.9, Eos % (Auto) 0.7, Baso % (Auto) 0.3, Neut # (Auto) 4.9, Lymph # (Auto) 0.8, [place] # (Auto) 0.4, Eos # (Auto) 0.0, Baso # (Auto) 0.0, PT 10.9, INR 0.97, APTT 29.3, Sodium 135 L, Potassium 3.8, Chloride 102, Carbon Dioxide 28, Anion Gap 8.8, BUN 6 L, Creatinine 0.70, Estimated Creat Clear 41, Estimated GFR 83, Est GFR ( Amer) 101, Glucose 114 H, Calcium 9.1, Total Bilirubin 0.7, AST 29, ALT 24, Alkaline Phosphatase 129 H, Total Protein 7.0 D, Albumin 4.1, Globulin 2.9, Albumin/Globulin Ratio 1.4 07/11/24 18:13 07/11/24 18:13 Orders (Tests/Meds): ED MEDICATIONS Generic Name Dose Route Start Last Admin Trade Name Freq PRN Reason Stop Dose Admin Fentanyl Citrate 50 mcg 07/11/24 18:03 07/11/24 18:21 Fentanyl 100mcg/2ml Vial IV 08/10/24 18:02 50 mcg [id number] PRN Administration Achieve CPOT Score < 3 Discontinued Medications Generic Name Dose Route Start Last Admin Trade Name Freq PRN Reason Stop Dose Admin Ketorolac Tromethamine 15 mg 07/11/24 18:03 07/11/24 18:21 Ketorolac 30mg/Ml Vial IV 07/11/24 18:04 15 mg ONCE ONE Administration ORDERS Category Date Time Status CT bony pelvis Stat Cat Scan 07/11/24 19:02 Taken Femur XR left 2 views [XR femur LT 2V] Stat Exams 07/11/24 18:02 Taken Hip XR left minimum 2 views [XR hip LT 2-3V w/pelvis] Exams 07/11/24 18:02 Taken Stat CBC w/Auto Diff [Complete Blood Count Auto Diff] Stat Lab 07/11/24 18:13 Completed CMP [Comprehensive Metabolic Panel] Stat Lab 07/11/24 18:13 Completed HIV Combo Stat Lab 07/11/24 18:13 Received Hepatitis C Ab Qual. W/ RFX Stat Lab 07/11/24 18:13 Received PT INR [Prothrombin Time INR] Stat Lab 07/11/24 18:13 Completed PTT [Activated Partial Thrombo Time] Stat Lab 07/11/24 18:13 Completed <Nigel Anderson MD - Last Filed: 07/11/24 20:15> Medical Records Medical records reviewed: Yes I reviewed the patient's medical records. Luis Miguel Inquiry Pt receiving controlled substance: No Luis Miguel was queried for this patient: No Vital Signs: 07/11/24 17:57 07/11/24 18:00 07/11/24 18:30 Temperature 97.9 F Temperature Source Oral Pulse Rate 77 73 Pulse Rate [Left] 77 Respiratory Rate 14 19 20 Blood Pressure 204/107 H 201/98 H Blood Pressure [Right Arm] 180/108 H Blood Pressure Mean [Right Arm] 132 Blood Pressure Source [Right Arm] Automatic Cuff Blood Pressure Position [Right Arm] Sitting 02 Sat by Pulse Oximetry 95 97 98 Oxygen Delivery Method Nasal Cannula Nasal Cannula Nasal Cannula Oxygen Flow Rate (LPM) 2 2 2 Lab Data Lab Results 07/11/24 18:13: WBC 6.1, RBC 4.73, Hgb 13.2, Hct 39.7, MCV 83.9, MCH 27.9, MCHC 33.2, RDW 15.2, Plt Count 121 L, MPV 11.8 H, Neut % (Auto) 79.3, Lymph % (Auto) 13.6, [place] % (Auto) 5.9, Eos % (Auto) 0.7, Baso % (Auto) 0.3, Neut # (Auto) 4.9, Lymph # (Auto) 0.8, [place] # (Auto) 0.4, Eos # (Auto) 0.0, Baso # (Auto) 0.0, PT 10.9, INR 0.97, APTT 29.3, Sodium 135 L, Potassium 3.8, Chloride 102, Carbon Dioxide 28, Anion Gap 8.8, BUN 6 L, Creatinine 0.70, Estimated Creat Clear 41, Estimated GFR 83, Est GFR ( Amer) 101, Glucose 114 H, Calcium 9.1, Total Bilirubin 0.7, AST 29, ALT 24, Alkaline Phosphatase 129 H, Total Protein 7.0 D, Albumin 4.1, Globulin 2.9, Albumin/Globulin Ratio 1.4 Orders (Tests/Meds): ED MEDICATIONS Generic Name Dose Route Start Last Admin Trade Name Freq PRN Reason Stop Dose Admin Fentanyl Citrate 50 mcg 07/11/24 18:03 07/11/24 18:21 Fentanyl 100mcg/2ml Vial IV 08/10/24 18:02 50 mcg [id number] PRN Administration Achieve CPOT Score < 3 Discontinued Medications Generic Name Dose Route Start Last Admin Trade Name Freq PRN Reason Stop Dose Admin Ketorolac Tromethamine 15 mg 07/11/24 18:03 07/11/24 18:21 Ketorolac 30mg/Ml Vial IV 07/11/24 18:04 15 mg ONCE ONE Administration ORDERS Category Date Time Status CT bony pelvis Stat Cat Scan 07/11/24 19:02 Taken Femur XR left 2 views [XR femur LT 2V] Stat Exams 07/11/24 18:02 Taken Hip XR left minimum 2 views [XR hip LT 2-3V w/pelvis] Exams 07/11/24 18:02 Taken Stat CBC w/Auto Diff [Complete Blood Count Auto Diff] Stat Lab 07/11/24 18:13 Completed CMP [Comprehensive Metabolic Panel] Stat Lab 07/11/24 18:13 Completed HIV Combo Stat Lab 07/11/24 18:13 Received Hepatitis C Ab Qual. W/ RFX Stat Lab 07/11/24 18:13 Received PT INR [Prothrombin Time INR] Stat Lab 07/11/24 18:13 Completed PTT [Activated Partial Thrombo Time] Stat Lab 07/11/24 18:13 Completed Medical Decision Narrative: This is a 69-year-old female presenting with fall. Patient states that she was walking last night, 3 in the PM, slipped and fell in her bathroom. Did not hit her head. Daughter was able to help her to a chair, patient unable to ambulate since then, EMS was called and brought her into the emergency department. Patient having significant pain on arrival. History was obtained via conversation with patient and daughter, EMS. On arrival, patient hemodynamically stable, alert, oriented x4, appropriate, GCS 15, moving all extremities spontaneously, pupils equal and reactive to light. Full physical exam performed and significant for externally rotated, neurovascularly intact left lower extremity. Significant tenderness with range of motion and passive range of motion. Differential includes hip fracture, fracture dislocation, neurovascular injury, avascular necrosis, among others.. Patient placed on continuous cardiac monitoring and continuous pulse ox with initial blood pressure 180/108, heart rate 77, saturation 95% on 2 L nasal cannula. Patient was given fentanyl, Toradol, fluids for symptomatic management and correction of underlying abnormalities. Workup independently interpreted and significant for nonactionable hematologic labs, normal coags, nonactionable CMP with normal kidney function.. On independent interpretation of imaging, patient has subcapital femoral neck fracture on the left. Concern for potential acetabular discontinuity, CT bony pelvis was ordered. On independent interpretation, this just read demonstrates left femoral neck fracture, no evidence of acetabular fracture. See radiology read for full review of final results. I had interactive discussion with orthopedics, because not on-call, patient to be transferred to higher level of care. Results were relayed to patient and daughter. On reevaluation, patient states her pain is moderately well improved with fentanyl and not having much pain at the moment. Given patient presentation, workup, history, this most likely represents left femoral neck fracture after fall from standing. Because patient high risk for clinical decompensation if discharged, deemed appropriate for transfer and inpatient admission. Results were relayed to patient who voiced understanding and patient was agreeable to transfer, inpatient admission, and management. Patient was graciously accepted and transferred to [facility] for further definitive management, under Dr. Jaffe. Intervention Teacher disclaimer Much of this encounter note is an electronic field crew chief spoken language to printed text. Electronic field crew chief of the spoken language may permit errors. Although I have reviewed the note, some errors may still exist. Critical Care <Nigel Anderson MD - Last Filed: 07/11/24 20:15> Critical Care Time Critical Care Time: No
--- NOTE | 2024-07-11 19:02 | CT_ITS ---
PROCEDURE INFORMATION: Exam: CT Pelvis Without Contrast, Skeleton Exam date and time: 07/11/2024 7:10 PM Age: 69 years old Clinical indication: Injury or trauma; Fall; Blunt trauma (contusions or hematomas); Left; Hip; Additional info: Concern for L tab involvement with FX TECHNIQUE: Imaging protocol: Computed tomography of the pelvis without contrast. Exam focused on the skeleton. Radiation optimization: All CT scans at this facility use at least one of these dose optimization techniques: automated exposure control; mA and/or kV adjustment per patient size (includes targeted exams where dose is matched to clinical indication); or iterative reconstruction. COMPARISON: CR XR HIP LT 2-3V W/PELVIS 07/11/2024 6:32 PM FINDINGS: Bones/joints: Mildly displaced, impacted and angulated left femoral neck fracture without dislocation. Soft tissues: Unremarkable. IMPRESSION: Left femoral neck fracture.
[2024-07-11 19:13] LABS: Basophils % 0.3 % (0.1-2.0); Eosinophils % 0.7 % (0.1-12.0); Hematocrit 39.7 % (37.0-47.0); Hemoglobin 13.2 g/dL (12.2-16.2); Lymphocytes # 0.8 K/mm3 (0.7-4.5); Lymphocytes % 13.6 % (10-50); Mean Corpuscular HGB Conc 33.2 g/dL (31.8-35.4); Mean Corpuscular Hemoglobin 27.9 pg (27.0-31.2); Mean Corpuscular Volume 83.9 fl (81-99); Mean Platelet Volume 11.8 fl (7.4-10.4); Monocytes # 0.4 K/mm3 (0.1-1.0); Monocytes % 5.9 % (1.7-9.3); Neutrophils # 4.9 K/mm3 (1.8-7.8); Neutrophils % 79.3 % (37.0-80.0); Platelet Count 121 K/mm3 (142-424); Red Blood Count 4.73 M/mm3 (4.20-5.40); Red Cell Distribution Width 15.2 % (11.5-17.5); White Blood Count 6.1 K/mm3 (4.8-10.8)
[2024-07-11 19:15] LABS: Albumin Level 4.1 g/dl (3.5-5.0); Chloride 102 mmol/L (98-107); Potassium 3.8 mmoL/L (3.5-5.1); Sodium 135 mmol/L (136-145)
[2024-07-11 19:18] LABS: Alanine Aminotransferase 24 U/L (12-78); Albumin/Globulin Ratio 1.4 (1.1-1.8); Alkaline Phosphatase 129 U/L (38-126); Anion Gap 8.8 mEq/L (5-15); Aspartate Amino Transferase 29 U/L (14-36); Bilirubin,Total 0.7 mg/dl (0.2-1.3); Blood Urea Nitrogen 6 mg/dl (7-17); Carbon Dioxide 28 mmol/L (22.0-30.0); Creatinine Clearance Estimated 41 mL/min (50-200); Estimated Glomerular Filt Rate 83 ml/min (>60); GFR (African American) 101 ML/MIN (>60); Globulin 2.9 g/dL (1.3-3.2)
[2024-07-11 19:19] LABS: Calcium 9.1 mg/dl (8.4-10.2); Glucose 114 mg/dl (74-100)
--- NOTE | 2024-07-11 19:25 | PC.NURSE ---
THIS RN RECIEVED BEDSIDE REPORT FROM PREVIOUS NURSE @ [id number]. PT BACK FROM CT SCAN. IS A&O, REPORTS PAIN W/ MOVEMENT HOWEEVER REPORTS NO PAIN AT THIS TIME. PT PLACED BACK ON MONITOR, CALL LIGHT WITHIN REACH OF PT.
[2024-07-11 19:27] LABS: Activated Partial Thrombo Time 29.3 seconds (22.8-30.6); INR 0.97 (0.9-1.1); Prothrombin Time 10.9 seconds (10.1-12.5)
--- NOTE | 2024-07-11 19:59 | PC.NURSE ---
Melonie spoke with transfer center, awaiting a call back at this time.
[2024-07-11 20:15] LABS: HIV Combo NEGATIVE (Negative)
--- NOTE | 2024-07-11 20:24 | PC.NURSE ---
Spoke with EMS to request xfer.
[2024-07-11 20:25] LABS: Hepatitis C Ab Qual. W/ RFX NEGATIVE (Negative)
[2024-07-11] MEDS: HYDROMORPHONE 2MG/ML SYRINGE 0.5 MG IV (20:38)
[2024-07-11 20:45] VITALS: BP 181/90; PULSE 81; RESP 20; TEMP 36.7; O2SAT 98
== END 2024-07-11 20:57 | disposition home or self-care (01) ==
PROVIDERS: Emergency Provider Emergency Medicine; PCP Pediatrics
DX: S72.002A Fracture of unspecified part of neck of left femur, initial encounter for closed fracture (principal); M25.552 Pain in left hip; C79.9 Secondary malignant neoplasm of unspecified site; F17.210 Nicotine dependence, cigarettes, uncomplicated; W18.39XA Other fall on same level, initial encounter; Y93.89 Activity, other specified; Y92.002 Bathroom of unspecified non-institutional (private) residence as the place of occurrence of the external cause
CPT/HCPCS: 72192; 73502; 73552; 80053; 85025; 85610; 85730; 86803; 87389; 96374; 96375; 99284; J1171; J1885; J3010